=== PATIENT | female | born 1970 | race Caucasian/White ===

== ENCOUNTER 2019-05-05 11:39 | Emergency (ER) | payer OTHER ==
[~2019-05-05] VITALS: Ht 160 cm; Wt 70.3 kg
[2019-05-05 11:55] VITALS: BP_SYST 176
--- NOTE | 2019-05-05 11:55 | NUR ---
Patient to ER bed 5 to gown for evaluation. Side rails up.
--- NOTE | 2019-05-05 11:56 | NUR ---
Patient arrived in the ED c/o headaches and elevated BP readings at home - Taking Lisinopril-HCTZ. Denied any chest pain or shortness of breath. Denied any fevers, chills, nausea or vomiting. Patient is alert and oriented x4, respirations even and unlabored, speaking in full sentences and ambulating with a steady gait. VSS, pain level 7/10. Informed of the approximate wait time. Instructed to notify ED staff for any changes in condition or worsening of symptoms while waiting to be seen by the provider. Patient verbalized understanding.
--- NOTE | 2019-05-05 12:04 | NUR ---
ER Dr. Camacho at bedside examining patient.
--- NOTE | 2019-05-05 12:09 | NUR ---
ECG done at bedside as ordered by Dr. Camacho. Patient tolerated the procedure well. Report given to MD for review.
[2019-05-05] MEDS ORDERED: cloNIDine HCL 0.1 MG TABLET PO ONE (12:15)
--- NOTE | 2019-05-05 12:20 | NUR ---
Patient ambulated to the bathroom with a steady gait. Urine specimen collected and dropped off as ordered by Dr. Camacho. Urine preg and dip done.
--- NOTE | 2019-05-05 12:25 | NUR ---
manager technical training at bedside collecting blood specimen as ordered by Dr. Camacho. Patient tolerated the procedure well.
--- NOTE | 2019-05-05 12:35 | NUR ---
Patient taken to CT via wheelchair, in stable condition.
--- NOTE | 2019-05-05 12:41 | NUR ---
Patient back from CT, in stable condition.
[2019-05-05 12:53] LABS: BASOPHILS # (AUTO) 0.1 K/uL (0.0-0.2); BASOPHILS % (AUTO) 0.8 % (0.0-2.0); EOSINOPHILS # (AUTO) 0.3 K/uL (0.0-0.4); EOSINOPHILS % (AUTO) 2.1 % (0.0-4.0); HEMATOCRIT 43.7 % (36-48); HEMOGLOBIN 14.9 g/dL (12.0-16.0); LYMPHOCYTES # (AUTO) 2.2 K/uL (1.0-5.5); MEAN CORPUSCULAR HEMOGLOBIN 29 pg (27-31); MEAN CORPUSCULAR HGB CONC 34 % (32-36); MEAN CORPUSCULAR VOLUME 85 fL (79.0-98.0); MONOCYTES # (AUTO) 0.8 K/uL (0.0-1.0); MONOCYTES % (AUTO) 6.5 % (1.7-9.3); NEUTROPHILS % (AUTO) 72.6 % (40.0-70.0); PLATELET COUNT (AUTO) 306 K/uL (130-430); RED BLOOD CELL COUNT(AUTO) 5.12 MIL/uL (4.2-6.2); WHITE BLOOD COUNT (AUTO) 12.4 K/uL (4.8-10.8)
[2019-05-05 13:08] LABS: INR 0.9 (0.8-1.2); PROTHROMBIN TIME 9.5 SECS (9.5-12.5)
[2019-05-05 13:17] LABS: CALCIUM 9.1 mg/dL (8.4-11.0); CREATININE 0.57 mg/dL (0.55-1.30); POTASSIUM 3.8 mmol/L (3.5-5.1)
[2019-05-05 13:22] LABS: ALBUMIN 3.7 g/dL (3.4-4.8); TOTAL BILIRUBIN 0.3 mg/dL (0.0-1.0)
--- NOTE | 2019-05-05 14:15 | NUR ---
Patient given written and verbal discharge instructions and verbalizes understanding. ER MD discussed with patient the results and treatment provided. Patient in stable condition. ID arm band removed. Rx of Clonidine given. Patient educated on pain management and to follow up with PMD. Pain Scale 0/10. Opportunity for questions provided and answered. Medication side effect fact sheet provided.
[2019-05-05 14:16] VITALS: BP_SYST 116
== END 2019-05-05 14:16 | disposition home or self-care (01) ==
LOC: SED 11:39
DX: I16.0 Hypertensive urgency (principal)
CPT/HCPCS: 36415; 70450-TC; 80053; 81025; 83880; 84484; 85025; 85610-TC; 85730-TC; 93005; 99284

== ENCOUNTER 2019-05-21 14:54 | Outpatient (CLI) | payer OTHER | END 2019-05-21 19:55 | disposition home or self-care (01) | LOC: SRD 14:54 | PROVIDERS: ATTEND Family Medicine | DX: M47.817 Spondylosis without myelopathy or radiculopathy, lumbosacral region (principal); M47.898 Other spondylosis, sacral and sacrococcygeal region; M47.814 Spondylosis without myelopathy or radiculopathy, thoracic region | CPT/HCPCS: 72072-TC; 72100-TC; 72220-TC ==

== ENCOUNTER 2019-07-16 10:35 | Emergency (ER) | payer OTHER ==
[~2019-07-16] VITALS: Ht 160 cm; Wt 78.9 kg
[2019-07-16 10:51] VITALS: BP_SYST 104
[2019-07-16] MEDS ORDERED: KETOROLAC TROMETHAMINE 60 MG/2 ML VIAL IM ONE (11:15)
[2019-07-16 11:57] VITALS: BP_SYST 116
== END 2019-07-16 11:57 | disposition home or self-care (01) ==
LOC: SED 10:35
DX: M54.5 Low back pain (principal)
CPT/HCPCS: 96372; 99283; J1885

== ENCOUNTER 2019-09-18 11:54 | Emergency (ER) | payer OTHER ==
[~2019-09-18] VITALS: Ht 165.1 cm; Wt 65.8 kg
[2019-09-18 12:00] VITALS: BP_SYST 136
[2019-09-18 12:53] VITALS: BP_SYST 136
== END 2019-09-18 12:55 | disposition home or self-care (01) ==
LOC: SED 11:54
DX: U07.1 COVID-19 (principal); I10 Essential (primary) hypertension
CPT/HCPCS: 99283; U0003

== ENCOUNTER 2019-10-05 09:14 | Emergency (ER) | payer OTHER, SELFPAY ==
[~2019-10-05] VITALS: Ht 162.6 cm; Wt 77.1 kg
--- NOTE | 2019-10-05 09:20 | NUR ---
PT PLACED ON TENT AT THIS TIME
--- NOTE | 2019-10-05 09:22 | NUR ---
Pt presents to ER with sore throat ,pt exposed to covid, pt requesting a second test for covid,as a requirement to come back to workfirst test ws negative, respirations even and unlabored,cap refill <3.
[2019-10-05 09:29] VITALS: BP_SYST 133
--- NOTE | 2019-10-05 09:45 | NUR ---
Dr Mancini assessing patient in the tent
--- NOTE | 2019-10-05 10:22 | NUR ---
Patient given written and verbal discharge instructions and verbalizes understanding. ER MD discussed with patient the results and treatment provided. Patient in stable condition. ID arm band removed. No Rx given. Patient educated on pain management and to follow up with PMD. Pain Scale 0/10. Opportunity for questions provided and answered. Medication side effect fact sheet provided.
[2019-10-05 10:23] VITALS: BP_SYST 133
== END 2019-10-05 10:23 | disposition home or self-care (01) ==
LOC: SED 09:14
DX: J02.8 Acute pharyngitis due to other specified organisms (principal); B97.89 Other viral agents as the cause of diseases classified elsewhere; Z20.828 Contact with and (suspected) exposure to other viral communicable diseases; I10 Essential (primary) hypertension
CPT/HCPCS: 99283; C9803; U0003

== ENCOUNTER 2019-10-27 08:24 | Outpatient (CLI) | payer OTHER ==
[2019-10-27 09:15] LABS: BILIRUBIN,URINE NEGATIVE (NEGATIVE); BLOOD, URINE NEGATIVE (NEGATIVE); CLARITY/URINE CLEAR (CLEAR); COLOR,URINE YELLOW (YELLOW); GLUCOSE,URINE NEGATIVE (NEGATIVE); HEMATOCRIT 40.9 % (36-48); HEMOGLOBIN 13.9 g/dL (12.0-16.0); KETONES,URINE NEGATIVE (NEGATIVE); LEUKOCYTE ESTERASE ,URINE NEGATIVE (NEGATIVE); NITRITE, URINE NEGATIVE (NEGATIVE); PH,URINE 5.5 (5.0-8.0); PROTEIN URINE NEGATIVE (NEGATIVE); UROBILINOGEN,URINE 0.2 (0.2-1.0)
[2019-10-27 10:06] LABS: ALBUMIN 3.4 g/dL (3.4-4.8); CALCIUM 8.8 mg/dL (8.4-11.0); CREATININE 0.61 mg/dL (0.55-1.30); FREE T4 (FREE THYROXINE) 0.8 ng/dL (0.6-1.6); POTASSIUM 3.8 mmol/L (3.5-5.1); THYROID STIMULATING HORMONE 3.64 uIu/mL (0.34-4.82); TOTAL BILIRUBIN 0.5 mg/dL (0.0-1.0)
[2019-10-28 11:10] LABS: FOLLICLE STIMULATION HORMONE 4.5 mIU/mL (.); LUETENIZING HORMONE 6.6 mIU/mL (.)
[2019-10-28 13:56] LABS: HEMOGLOBIN A1C 5.8 % (4.8-5.6)
== END 2019-10-27 19:17 | disposition home or self-care (01) ==
LOC: SLB 08:24
PROVIDERS: ATTEND Specialist
DX: Z00.00 Encounter for general adult medical examination without abnormal findings (principal); E78.5 Hyperlipidemia, unspecified
CPT/HCPCS: 36415; 80053; 80061; 81003; 83001; 83002; 83036; 84146; 84439; 84443-TC; 85018-TC

== ENCOUNTER 2020-02-04 13:14 | Emergency (ER) | payer OTHER ==
[~2020-02-04] VITALS: Ht 160 cm; Wt 77.1 kg
[2020-02-04 13:25] VITALS: BP_SYST 129
[2020-02-04 14:40] VITALS: BP_SYST 129
== END 2020-02-04 14:40 | disposition home or self-care (01) ==
LOC: SED 13:14
DX: J32.9 Chronic sinusitis, unspecified (principal); R51.9 Headache, unspecified; I10 Essential (primary) hypertension; Z90.49 Acquired absence of other specified parts of digestive tract; Z90.710 Acquired absence of both cervix and uterus
CPT/HCPCS: 99282

== ENCOUNTER 2020-02-17 09:59 | Emergency (ER) | payer OTHER, SELFPAY ==
[~2020-02-17] VITALS: Ht 160 cm; Wt 76.2 kg
[2020-02-17 10:00] VITALS: BP_SYST 153
--- NOTE | 2020-02-17 10:00 | NUR ---
BROUGHT BACK TO BED #6 AND TRIAGED. REPORT GIVEN TO CHRISTOPHER
--- NOTE | 2020-02-17 10:10 | NUR ---
Pt walked in to ER with c/o cough and earache x1 week. Denies SOB or fever at this time. V/S stable, Pt currently sitting at bedside, will continue to monitor.
--- NOTE | 2020-02-17 10:14 | NUR ---
DR YUSUF AT BEDSIDE FOR EVALUATION
--- NOTE | 2020-02-17 10:20 | NUR ---
Radiology at bedside for CXR.
--- NOTE | 2020-02-17 10:40 | NUR ---
Nasal swab obtained to r/o covid. Sample sent to lab, pt tolerated well.
--- NOTE | 2020-02-17 11:15 | NUR ---
Patient given written and verbal discharge instructions and verbalizes understanding. ER MD discussed with patient the results and treatment provided. Patient in stable condition. ID arm band removed. Rx of Augmentin and Flonase given. Patient educated on pain management and to follow up with PMD. Pain Scale 0. Opportunity for questions provided and answered. Medication side effect fact sheet provided.
[2020-02-17 11:16] VITALS: BP_SYST 153
== END 2020-02-17 11:15 | disposition home or self-care (01) ==
LOC: SED 09:59
DX: H74.8X3 Other specified disorders of middle ear and mastoid, bilateral (principal); J20.9 Acute bronchitis, unspecified; I10 Essential (primary) hypertension; Z20.828 Contact with and (suspected) exposure to other viral communicable diseases
CPT/HCPCS: 36415; 71045; 99284

== ENCOUNTER → 2020-02-24 | Outpatient (CLI) | payer OTHER ==
[2020-02-24 09:59] LABS: BILIRUBIN,URINE NEGATIVE (NEGATIVE); BLOOD, URINE NEGATIVE (NEGATIVE); CLARITY/URINE CLEAR (CLEAR); COLOR,URINE YELLOW (YELLOW); GLUCOSE,URINE NEGATIVE (NEGATIVE); KETONES,URINE NEGATIVE (NEGATIVE); LEUKOCYTE ESTERASE ,URINE NEGATIVE (NEGATIVE); NITRITE, URINE NEGATIVE (NEGATIVE); PROTEIN URINE NEGATIVE (NEGATIVE); UROBILINOGEN,URINE 0.2 (0.2-1.0)
[2020-02-24 10:11] LABS: BASOPHILS # (AUTO) 0.1 K/uL (0.0-0.2); BASOPHILS % (AUTO) 0.6 % (0.0-2.0); EOSINOPHILS # (AUTO) 0.7 K/uL (0.0-0.4); EOSINOPHILS % (AUTO) 4.2 % (0.0-4.0); HEMATOCRIT 41.9 % (36-48); HEMOGLOBIN 14.3 g/dL (12.0-16.0); LYMPHOCYTES # (AUTO) 2.5 K/uL (1.0-5.5); LYMPHOCYTES % (AUTO) 15.9 % (20.5-51.5); MEAN CORPUSCULAR HEMOGLOBIN 29 pg (27-31); MEAN CORPUSCULAR HGB CONC 34 % (32-36); MEAN CORPUSCULAR VOLUME 85 fL (79.0-98.0); MONOCYTES % (AUTO) 6.4 % (1.7-9.3); NEUTROPHILS # (AUTO) 11.4 K/uL (1.8-7.7); NEUTROPHILS % (AUTO) 72.9 % (40.0-70.0); PLATELET COUNT (AUTO) 315 K/uL (130-430); RED BLOOD CELL COUNT(AUTO) 4.96 MIL/uL (4.2-6.2); RED CELL DISTRIBUTION WIDTH 13.1 % (9.0-15.0); WHITE BLOOD COUNT (AUTO) 15.7 K/uL (4.8-10.8)
[2020-02-24 10:51] LABS: ALBUMIN 3.2 g/dL (3.4-4.8); BILIRUBIN,DIRECT 0.1 mg/dL (0.0-0.3); CALCIUM 8.8 mg/dL (8.4-11.0); CREATININE 0.53 mg/dL (0.55-1.30); THYROID STIMULATING HORMONE 1.69 uIu/mL (0.34-4.82); TOTAL BILIRUBIN 0.4 mg/dL (0.0-1.0); URIC ACID 5.3 mg/dL (2.4-7.0)
[2020-02-24 10:55] LABS: POTASSIUM 3.7 mmol/L (3.5-5.1)
== END | disposition home or self-care (01) ==
LOC: SLB 09:25
PROVIDERS: ATTEND Family Medicine
DX: E78.5 Hyperlipidemia, unspecified (principal); I10 Essential (primary) hypertension; J45.909 Unspecified asthma, uncomplicated
CPT/HCPCS: 36415; 80053; 80061; 80076; 81003; 82306; 82607; 83540-TC; 83550-TC; 84443-TC; 84550-TC; 85025

== ENCOUNTER 2020-03-02 11:29 | Emergency (ER) | payer OTHER, SELFPAY ==
[~2020-03-02] VITALS: Ht 160 cm; Wt 74.8 kg
[2020-03-02 11:40] VITALS: BP_SYST 143
== END 2020-03-02 13:27 | disposition home or self-care (01) ==
LOC: SED 11:29
DX: J06.9 Acute upper respiratory infection, unspecified (principal); I10 Essential (primary) hypertension; Z90.49 Acquired absence of other specified parts of digestive tract; Z20.828 Contact with and (suspected) exposure to other viral communicable diseases
CPT/HCPCS: 99284; 71045; C9803; U0003

== ENCOUNTER 2020-03-17 09:10 | Outpatient (CLI) | payer OTHER | END 2020-03-17 19:59 | disposition home or self-care (01) | LOC: SRD 09:10 | DX: R05 Cough (principal) | CPT/HCPCS: 71046-TC ==

== ENCOUNTER 2020-08-15 15:45 | Outpatient (CLI) | payer OTHER | END 2020-08-15 20:43 | disposition home or self-care (01) | LOC: SRD 15:45 | PROVIDERS: ATTEND Family Medicine | DX: Z12.31 Encounter for screening mammogram for malignant neoplasm of breast (principal) | CPT/HCPCS: 77067 ==

== ENCOUNTER 2020-10-13 06:24 | Day surgery (SDC) | payer OTHER, SELFPAY ==
[~2020-10-13] VITALS: Ht 157.5 cm; Wt 77.1 kg
[2020-10-13] MEDS ORDERED: SIMETHICONE 40 MG/0.6 ML ML ONE (08:09)
[2020-10-13] MEDS ORDERED: MIDAZOLAM HCL 5 MG/5 ML VIAL ONE (08:15)
[2020-10-13] MEDS ORDERED: MEPERIDINE 100 MG INJ. 100 MG/ML VIAL ONE (08:16)
[2020-10-13 11:12] VITALS: BP_SYST 113
== END 2020-10-13 09:35 | disposition home or self-care (01) ==
LOC: SDS 06:24 → SMU 06:28 → SDS 09:35
PROVIDERS: ATTEND Internal Medicine
DX: Z12.11 Encounter for screening for malignant neoplasm of colon (principal); D12.0 Benign neoplasm of cecum; D12.2 Benign neoplasm of ascending colon; D12.4 Benign neoplasm of descending colon; K64.8 Other hemorrhoids; K57.30 Diverticulosis of large intestine without perforation or abscess without bleeding; K64.4 Residual hemorrhoidal skin tags; I12.0 Hypertensive chronic kidney disease with stage 5 chronic kidney disease or end stage renal disease; E11.22 Type 2 diabetes mellitus with diabetic chronic kidney disease; N18.6 End stage renal disease; Z80.0 Family history of malignant neoplasm of digestive organs; Z79.899 Other long term (current) drug therapy
CPT/HCPCS: 36415; 45380; 45385; 87426; 88305; 99152; G0378; J2175; J2250

== ENCOUNTER 2021-06-01 06:54 | Day surgery (SDC) | payer OTHER, SELFPAY ==
[~2021-06-01] VITALS: Ht 157.5 cm; Wt 74.8 kg
[2021-06-01] MEDS ORDERED: MEPERIDINE 100 MG INJ. 100 MG/ML VIAL ONE (08:52)
[2021-06-01] MEDS ORDERED: BENZOCAINE 20% 0.5mL UD SPRAY MM ONE (08:52)
[2021-06-01] MEDS: MIDAZOLAM HCL 5 MG/5 ML VIAL ONE ×3 (09:32→09:37)
[2021-06-01 12:39] VITALS: BP_SYST 122
== END 2021-06-01 10:30 | disposition home or self-care (01) ==
LOC: SDS 06:54 → SMU 06:55 → SDS 10:30
PROVIDERS: ATTEND Internal Medicine
DX: K21.9 Gastro-esophageal reflux disease without esophagitis (principal); K29.70 Gastritis, unspecified, without bleeding; Z20.822 Contact with and (suspected) exposure to COVID-19; Z79.899 Other long term (current) drug therapy
CPT/HCPCS: 36415; 43239; 87426; 88305; 88312; 88313; 99152; G0378; J2175; J2250; U0003

== ENCOUNTER 2021-08-23 23:25 | Emergency (ER) | payer OTHER ==
[~2021-08-23] VITALS: Ht 157.5 cm; Wt 77.1 kg
--- NOTE | 2021-08-23 23:29 | NUR ---
Placed in room 1 . Placed on nurse monitoring, blood pressure machine and pulse oximeter. To gown for exam. Side rails up. Report given to JEREMY CAR[place].
[2021-08-23 23:37] VITALS: BP_SYST 180
[2021-08-24] MEDS ORDERED: ACETAMINOPHEN 500 MG TABLET PO ONE
[2021-08-24] MEDS ORDERED: KETOROLAC TROMETHAMINE 30 MG VIAL IVP ONE
--- NOTE | 2021-08-24 | NUR ---
51 YR OLD FEMALE WITH COMPLAINT OF SHARP CHEST PAIN 8/10 THAT RADIATES DOWN LEFT ARM, PT REPORTS POUNDING HEADACHE 7/10 FOR THRE DAYS. PT REPORTS HX OF HTN. MD AT THE BEDSIDE. EKG COMPLETED IN TRAIGE. IV INSERTED PER PROTOCOL. WILL MONITOR CLOSELY
[2021-08-24 00:05] LABS: BASOPHILS # (AUTO) 0.1 K/uL (0.0-0.2); HEMOGLOBIN 15.9 g/dL (12.0-16.0); MEAN CORPUSCULAR HGB CONC 36 % (32-36); MONOCYTES # (AUTO) 0.7 K/uL (0.0-1.0); RED BLOOD CELL COUNT(AUTO) 5.37 MIL/uL (4.2-6.2)
[2021-08-24 00:09] LABS: BASOPHILS % (AUTO) 1.1 % (0.0-2.0); EOSINOPHILS # (AUTO) 0.2 K/uL (0.0-0.4); HEMATOCRIT 43.9 % (36-48); LYMPHOCYTES # (AUTO) 2.9 K/uL (1.0-5.5); LYMPHOCYTES % (AUTO) 24.8 % (20.5-51.5); MEAN CORPUSCULAR HEMOGLOBIN 30 pg (27-31); MEAN CORPUSCULAR VOLUME 82 fL (79.0-98.0); MONOCYTES % (AUTO) 6.4 % (1.7-9.3); NEUTROPHILS # (AUTO) 7.6 K/uL (1.8-7.7); NEUTROPHILS % (AUTO) 65.7 % (40.0-70.0); PLATELET COUNT (AUTO) 281 K/uL (130-430); RED CELL DISTRIBUTION WIDTH 13.3 % (9.0-15.0); WHITE BLOOD COUNT (AUTO) 11.6 K/uL (4.8-10.8)
[2021-08-24 00:14] LABS: ANION GAP 10 (5-15); CALCIUM 8.3 mg/dL (8.4-11.0); CHLORIDE 95 mmol/L (98-107); CREATININE 0.66 mg/dL (0.55-1.30); GLUCOSE 361 mg/dL (70-99); POTASSIUM 3.4 mmol/L (3.5-5.1); SODIUM SERUM 129 mmol/L (136-145); UREA NITROGEN, BLOOD 14 mg/dL (8-21)
[2021-08-24 00:23] LABS: ALBUMIN 3.3 g/dL (3.4-4.8); GFR AFRICAN AMERICAN 121 mL/min (>90); TOTAL BILIRUBIN 0.6 mg/dL (0.0-1.0)
[2021-08-24] MEDS ORDERED: POTASSIUM CHLORIDE 20 MEQ TAB.PRT.SR PO ONE (00:45)
[2021-08-24] MEDS ORDERED: NACL 0.9% 1,000 ML IV ONE (00:45)
[2021-08-24 01:03] LABS: ALANINE AMINOTRANSFERASE 49 U/L (12-78); ASPARTATE AMINOTRANSFERASE 28 U/L (10-37)
--- NOTE | 2021-08-24 02:15 | NUR ---
IV DC'D IV DC'D, PT TOLERATED WELL. TIP IN TACT, PRESSURE HELD FOR 2 MINUTES. NO BLEEDING
[2021-08-24 02:20] VITALS: BP_SYST 127
--- NOTE | 2021-08-24 02:23 | NUR ---
Patient given written and verbal discharge instructions and verbalizes understanding. ER MD FLORES discussed with patient the results and treatment provided. Patient in stable condition. ID arm band removed. IV catheter removed intact and dressing applied, no active bleeding. Patient educated on pain management and to follow up with PMD. Pain Scale . Opportunity for questions provided and answered. Pt encouarged to follow up with primary care doctor. pt discharged with all belongings. accompanied by daughter
== END 2021-08-24 02:25 | disposition home or self-care (01) ==
LOC: SED 23:25
DX: R07.89 Other chest pain (principal); E87.6 Hypokalemia; E11.9 Type 2 diabetes mellitus without complications; I10 Essential (primary) hypertension
CPT/HCPCS: 36415; 71045; 80053; 83880; 84484; 85025; 85379; 93005; 96361; 96374; 99285; J1885; J7030

== ENCOUNTER 2021-08-26 08:20 | Outpatient (CLI) | payer OTHER ==
[2021-08-26 09:20] LABS: BILIRUBIN,URINE NEGATIVE (NEGATIVE); BLOOD, URINE NEGATIVE (NEGATIVE); CLARITY/URINE CLEAR (CLEAR); COLOR,URINE YELLOW (YELLOW); GLUCOSE,URINE 3+ (NEGATIVE); KETONES,URINE NEGATIVE (NEGATIVE); LEUKOCYTE ESTERASE ,URINE NEGATIVE (NEGATIVE); NITRITE, URINE NEGATIVE (NEGATIVE); PH,URINE 5.5 (5.0-8.0); PROTEIN URINE NEGATIVE (NEGATIVE); UROBILINOGEN,URINE 0.2 (0.2-1.0)
[2021-08-26 09:42] LABS: BACTERIA,URINE RARE /HPF (None Seen); MUCUS,URINE 1+ /LPF (None Seen); RBC,URINE 0-3 /HPF (0-3); WBC,URINE 0-3 /HPF (0-3)
[2021-08-26 10:17] LABS: BASOPHILS # (AUTO) 0.1 K/uL (0.0-0.2); EOSINOPHILS # (AUTO) 0.2 K/uL (0.0-0.4); HEMATOCRIT 42.7 % (36-48); LYMPHOCYTES # (AUTO) 1.7 K/uL (1.0-5.5); MEAN CORPUSCULAR VOLUME 83 fL (79.0-98.0); MONOCYTES # (AUTO) 0.5 K/uL (0.0-1.0); PLATELET COUNT (AUTO) 387 K/uL (130-430); RED BLOOD CELL COUNT(AUTO) 5.17 MIL/uL (4.2-6.2); RED CELL DISTRIBUTION WIDTH 13.5 % (9.0-15.0)
[2021-08-26 10:29] LABS: ALBUMIN 3.5 g/dL (3.4-4.8); CALCIUM 8.4 mg/dL (8.4-11.0); CREATININE 0.63 mg/dL (0.55-1.30); HEMOGLOBIN 14.3 g/dL (12.0-16.0); MEAN CORPUSCULAR HEMOGLOBIN 28 pg (27-31); MEAN CORPUSCULAR HGB CONC 34 % (32-36); POTASSIUM 3.8 mmol/L (3.5-5.1); TOTAL BILIRUBIN 0.3 mg/dL (0.0-1.0)
[2021-08-26 10:30] LABS: WHITE BLOOD COUNT (AUTO) 8.3 K/uL (4.8-10.8)
[2021-08-26 10:31] LABS: BASOPHILS % (AUTO) 0.7 % (0.0-2.0); EOSINOPHILS % (AUTO) 2.4 % (0.0-4.0); LYMPHOCYTES % (AUTO) 20.4 % (20.5-51.5); MONOCYTES % (AUTO) 5.9 % (1.7-9.3); NEUTROPHILS % (AUTO) 70.6 % (40.0-70.0)
[2021-08-27 15:00] LABS: HEMOGLOBIN A1C 10.1 % (4.8-5.6)
== END 2021-08-26 19:09 | disposition home or self-care (01) ==
LOC: SLB 08:20
PROVIDERS: ATTEND Pathology Anatomic Pathology & Clinical Pathology
DX: E87.6 Hypokalemia (principal); R73.9 Hyperglycemia, unspecified; E83.51 Hypocalcemia; D64.9 Anemia, unspecified
CPT/HCPCS: 36415; 80053; 80061; 81000; 82306; 82607; 83036; 83540; 84550; 85025

== ENCOUNTER 2021-08-31 15:30 | Outpatient (CLI) | payer OTHER | END 2021-09-04 08:14 | disposition home or self-care (01) | LOC: SMA 15:30 | PROVIDERS: ATTEND Family Medicine | DX: Z12.31 Encounter for screening mammogram for malignant neoplasm of breast (principal); M47.812 Spondylosis without myelopathy or radiculopathy, cervical region; M50.122 Cervical disc disorder at C5-C6 level with radiculopathy; M48.02 Spinal stenosis, cervical region; N64.89 Other specified disorders of breast; M77.8 Other enthesopathies, not elsewhere classified; Z98.82 Breast implant status | CPT/HCPCS: 72050-TC; 76641; 77067 ==

== ENCOUNTER 2021-12-10 09:27 | Outpatient (CLI) | payer OTHER ==
[2021-12-10 10:08] LABS: BASOPHILS # (AUTO) 0.1 K/uL (0.0-0.2); BASOPHILS % (AUTO) 0.8 % (0.0-2.0); EOSINOPHILS # (AUTO) 0.2 K/uL (0.0-0.4); EOSINOPHILS % (AUTO) 1.8 % (0.0-4.0); HEMATOCRIT 41.2 % (36-48); LYMPHOCYTES # (AUTO) 2.1 K/uL (1.0-5.5); LYMPHOCYTES % (AUTO) 18.5 % (20.5-51.5); MEAN CORPUSCULAR VOLUME 81 fL (79.0-98.0); MONOCYTES # (AUTO) 0.7 K/uL (0.0-1.0); MONOCYTES % (AUTO) 5.7 % (1.7-9.3); NEUTROPHILS # (AUTO) 8.4 K/uL (1.8-7.7); NEUTROPHILS % (AUTO) 73.2 % (40.0-70.0); PLATELET COUNT (AUTO) 285 K/uL (130-430); RED BLOOD CELL COUNT(AUTO) 5.06 MIL/uL (4.2-6.2); RED CELL DISTRIBUTION WIDTH 13.2 % (9.0-15.0); WHITE BLOOD COUNT (AUTO) 11.4 K/uL (4.8-10.8)
[2021-12-10 11:27] LABS: CALCIUM 9.3 mg/dL (8.4-11.0); CREATININE 0.64 mg/dL (0.55-1.30); POTASSIUM 3.6 mmol/L (3.5-5.1)
[2021-12-10 13:30] LABS: BILIRUBIN,URINE NEGATIVE (NEGATIVE); BLOOD, URINE NEGATIVE (NEGATIVE); CLARITY/URINE CLOUDY (CLEAR); COLOR,URINE YELLOW (YELLOW); GLUCOSE,URINE NEGATIVE (NEGATIVE); KETONES,URINE NEGATIVE (NEGATIVE); LEUKOCYTE ESTERASE ,URINE NEGATIVE (NEGATIVE); NITRITE, URINE NEGATIVE (NEGATIVE); PROTEIN URINE NEGATIVE (NEGATIVE); UROBILINOGEN,URINE 0.2 (0.2-1.0)
[2021-12-10 13:49] LABS: BACTERIA,URINE None Seen /HPF (None Seen); RBC,URINE NONE SEEN /HPF (0-3); URINE AMORPHOUS URATE 4+ /HPF (None Seen); WBC,URINE NONE SEEN /HPF (0-3)
[2021-12-11 08:06] LABS: FOLLICLE STIMULATION HORMONE 27.2 mIU/mL (.); LUETENIZING HORMONE 13.5 mIU/mL (.)
== END 2021-12-10 20:12 | disposition home or self-care (01) ==
LOC: SLB 09:27
PROVIDERS: ATTEND Family Medicine
DX: E11.9 Type 2 diabetes mellitus without complications (principal); N95.9 Unspecified menopausal and perimenopausal disorder; E78.5 Hyperlipidemia, unspecified; Z88.6 Allergy status to analgesic agent
CPT/HCPCS: 36415; 80048; 80061; 81000; 82150; 82785; 83001; 83002; 83036; 83690; 83970; 85025

== ENCOUNTER 2022-01-05 11:41 | Outpatient (CLI) | payer OTHER | END 2022-01-05 19:00 | disposition home or self-care (01) | LOC: SMI 11:41 | PROVIDERS: ATTEND Psychiatry & Neurology Neurology with Special Qualifications in Child Neurology | DX: M47.22 Other spondylosis with radiculopathy, cervical region (principal); M50.122 Cervical disc disorder at C5-C6 level with radiculopathy; M50.123 Cervical disc disorder at C6-C7 level with radiculopathy; M47.817 Spondylosis without myelopathy or radiculopathy, lumbosacral region; M48.061 Spinal stenosis, lumbar region without neurogenic claudication | CPT/HCPCS: 72141; 72148 ==

== ENCOUNTER 2022-04-15 08:43 | Outpatient (CLI) | payer OTHER ==
[2022-04-15 09:29] LABS: BILIRUBIN,URINE NEGATIVE (NEGATIVE); BLOOD, URINE NEGATIVE (NEGATIVE); CLARITY/URINE CLEAR (CLEAR); COLOR,URINE YELLOW (YELLOW); GLUCOSE,URINE NEGATIVE (NEGATIVE); KETONES,URINE NEGATIVE (NEGATIVE); LEUKOCYTE ESTERASE ,URINE NEGATIVE (NEGATIVE); NITRITE, URINE NEGATIVE (NEGATIVE); PROTEIN URINE NEGATIVE (NEGATIVE); UROBILINOGEN,URINE 0.2 (0.2-1.0)
[2022-04-15 09:32] LABS: BASOPHILS % (AUTO) 0.2 % (0.0-2.0); EOSINOPHILS # (AUTO) 0.3 K/uL (0.0-0.4); EOSINOPHILS % (AUTO) 2.7 % (0.0-4.0); HEMATOCRIT 43.4 % (36-48); HEMOGLOBIN 14.9 g/dL (12.0-16.0); LYMPHOCYTES # (AUTO) 2.3 K/uL (1.0-5.5); LYMPHOCYTES % (AUTO) 19.9 % (20.5-51.5); MEAN CORPUSCULAR HEMOGLOBIN 29 pg (27-31); MEAN CORPUSCULAR HGB CONC 34 % (32-36); MEAN CORPUSCULAR VOLUME 84 fL (79.0-98.0); MONOCYTES # (AUTO) 0.7 K/uL (0.0-1.0); MONOCYTES % (AUTO) 5.7 % (1.7-9.3); NEUTROPHILS # (AUTO) 8.4 K/uL (1.8-7.7); NEUTROPHILS % (AUTO) 71.5 % (40.0-70.0); PLATELET COUNT (AUTO) 284 K/uL (130-430); RED BLOOD CELL COUNT(AUTO) 5.18 MIL/uL (4.2-6.2); RED CELL DISTRIBUTION WIDTH 13.1 % (9.0-15.0); WHITE BLOOD COUNT (AUTO) 11.7 K/uL (4.8-10.8)
[2022-04-15 09:46] LABS: ALBUMIN 3.9 g/dL (3.4-4.8); BILIRUBIN,DIRECT 0.1 mg/dL (0.0-0.3); CREATININE 0.57 mg/dL (0.55-1.30); THYROID STIMULATING HORMONE 2.22 uIu/mL (0.34-4.82); TOTAL BILIRUBIN 0.6 mg/dL (0.0-1.0)
[2022-04-16 16:06] LABS: FOLLICLE STIMULATION HORMONE 7.7 mIU/mL (.); LUETENIZING HORMONE 6.6 mIU/mL (.); T4 (THYROXINE) 8.7 ug/dL (4.5-12.0)
== END 2022-04-15 19:01 | disposition home or self-care (01) ==
LOC: SLB 08:43
PROVIDERS: ATTEND Family Medicine
DX: Z13.21 Encounter for screening for nutritional disorder (principal); Z13.29 Encounter for screening for other suspected endocrine disorder; Z13.0 Encounter for screening for diseases of the blood and blood-forming organs and certain disorders involving the immune mechanism; I10 Essential (primary) hypertension; E11.9 Type 2 diabetes mellitus without complications; E78.5 Hyperlipidemia, unspecified; N95.9 Unspecified menopausal and perimenopausal disorder
CPT/HCPCS: 36415; 80053; 80061; 81003; 82248; 82607; 83001; 83002; 83036; 83540; 84436; 84443; 84480; 85025

== ENCOUNTER 2022-04-27 18:10 | Emergency (ER) | payer OTHER ==
[~2022-04-27] VITALS: Ht 160 cm; Wt 72.6 kg
[2022-04-27 18:28] VITALS: BP_SYST 143
[2022-04-27 19:57] LABS: BASOPHILS % (AUTO) 0.3 % (0.0-2.0); EOSINOPHILS # (AUTO) 0.1 K/uL (0.0-0.4); EOSINOPHILS % (AUTO) 1.2 % (0.0-4.0); HEMATOCRIT 40.5 % (36-48); HEMOGLOBIN 14.4 g/dL (12.0-16.0); LYMPHOCYTES # (AUTO) 1.1 K/uL (1.0-5.5); LYMPHOCYTES % (AUTO) 10.2 % (20.5-51.5); MEAN CORPUSCULAR HEMOGLOBIN 30 pg (27-31); MEAN CORPUSCULAR HGB CONC 36 % (32-36); MEAN CORPUSCULAR VOLUME 83 fL (79.0-98.0); MONOCYTES % (AUTO) 9.3 % (1.7-9.3); NEUTROPHILS # (AUTO) 8.4 K/uL (1.8-7.7); PLATELET COUNT (AUTO) 289 K/uL (130-430); RED CELL DISTRIBUTION WIDTH 13.3 % (9.0-15.0); WHITE BLOOD COUNT (AUTO) 10.7 K/uL (4.8-10.8)
[2022-04-27 20:03] LABS: ANION GAP 11 (5-15); CALCIUM 9.1 mg/dL (8.4-11.0); CHLORIDE 100 mmol/L (98-107); CREATININE 0.57 mg/dL (0.55-1.30); GLUCOSE 157 mg/dL (70-99); UREA NITROGEN, BLOOD 9 mg/dL (8-21)
[2022-04-27 20:07] LABS: GFR AFRICAN AMERICAN 143 mL/min (>90)
[2022-04-27 20:10] LABS: ALANINE AMINOTRANSFERASE 63 U/L (12-78); ALBUMIN 3.9 g/dL (3.4-4.8); ASPARTATE AMINOTRANSFERASE 39 U/L (10-37); TOTAL BILIRUBIN 0.5 mg/dL (0.0-1.0)
[2022-04-27] MEDS ORDERED: ALBUTEROL SULFATE 0.083% 2.5 MG/3 ML VIAL.NEB INH ONE (20:30)
[2022-04-27] MEDS ORDERED: IBUPROFEN 800 MG TABLET PO ONE (20:30)
[2022-04-27] MEDS ORDERED: IPRATROPIUM BROM 0.5 MG/2.5 ML VIAL.NEB (ATROVENT) INH ONE (20:30)
[2022-04-27] MEDS ORDERED: PHEDM120 PO (21:54)
[2022-04-27] MEDS ORDERED: IBUP-1969 PO (21:54)
[2022-04-27] MEDS ORDERED: ALBMDI INH (21:54)
--- NOTE | 2022-04-27 21:58 | NUR ---
Patient given written and verbal discharge instructions and verbalizes understanding. ER MD Dr. Camacho discussed with patient the results and treatment provided. Patient in stable condition. ID arm band removed. Rx given. Patient educated on pain management and to follow up with PMD. Pain Scale 0. Opportunity for questions provided and answered. Medication side effect fact sheet provided.
[2022-04-27 22:07] VITALS: BP_SYST 115
== END 2022-04-27 22:07 | disposition home or self-care (01) ==
LOC: SED 18:10
DX: J40 Bronchitis, not specified as acute or chronic (principal); R05.9 Cough, unspecified; R50.9 Fever, unspecified; M79.10 Myalgia, unspecified site; I10 Essential (primary) hypertension; Z79.899 Other long term (current) drug therapy; Z20.822 Contact with and (suspected) exposure to COVID-19
CPT/HCPCS: 80053; 84703; 83880; 85025; 84484; 36415; 71045; 94640; 99284; 83605; 87804 ×2; 87426; J7613

== ENCOUNTER 2022-04-29 08:17 | Emergency (ER) | payer OTHER ==
[~2022-04-29] VITALS: Ht 160 cm; Wt 74.8 kg
[~2022-04-29 08:17] MED LIST: ALBMDI INH; IBUP-1969 PO; PHEDM120 PO
--- NOTE | 2022-04-29 08:19 | NUR ---
BROUGHT BACK TO BED #7 SAURABH MUNIZ. REPORT GIVEN TO HETAL
[2022-04-29 08:20] VITALS: BP_SYST 148
--- NOTE | 2022-04-29 08:31 | NUR ---
PT BIB SELF AWAKE AND ALERT AOX4. PT C/O SOB AND BODY ACHES. PT STATED SHE WAS HERE IN THE ER SATURDAY AND WAS DX W/ BRONCITIS. PT STATED SHE TOOK ALL PRECRIBED MED SHE RECEIVED FROM HER PREVIOUS VISIT BUT NOTHING HELP. PT O2 SAT IS 95% ON RA. PT HAS HX OD DM2 AND HTN.
--- NOTE | 2022-04-29 08:34 | NUR ---
MD DR MCCAULEY AT BEDSIDE
[2022-04-29] MEDS ORDERED: ALBUTEROL SULFATE 0.083% 2.5 MG/3 ML VIAL.NEB INH ONE (09:15)
[2022-04-29] MEDS ORDERED: predniSONE 20 MG TABLET PO ONE (09:15)
[2022-04-29] MEDS ORDERED: IPRATROPIUM BROM 0.5 MG/2.5 ML VIAL.NEB (ATROVENT) INH ONE (09:15)
[2022-04-29] MEDS ORDERED: KETOROLAC TROMETHAMINE 60 MG/2 ML VIAL IM ONE (09:30)
[2022-04-29] MEDS ORDERED: HYDR-3917 PO (10:06)
[2022-04-29] MEDS ORDERED: PRED20TA PO (10:06)
[2022-04-29 10:15] VITALS: BP_SYST 148
--- NOTE | 2022-04-29 10:16 | NUR ---
Patient given written and verbal discharge instructions and verbalizes understanding. ER MD DR ZABALA discussed with patient the results and treatment provided. Patient in stable condition. ID arm band removed. Rx of NORCO AND PREDNISONE given. Patient educated on pain management and to follow up with PMD. Pain Scale 5/10. Opportunity for questions provided and answered. Medication side effect fact sheet provided.
== END 2022-04-29 10:16 | disposition home or self-care (01) ==
LOC: SED 08:17
DX: R06.02 Shortness of breath (principal); R05.9 Cough, unspecified; R07.9 Chest pain, unspecified; E11.9 Type 2 diabetes mellitus without complications; I10 Essential (primary) hypertension; Z79.899 Other long term (current) drug therapy
CPT/HCPCS: 94640; 94760; 99283; 96372; J7512; J1885; J7613; 99285

== ENCOUNTER 2022-10-13 08:52 | Outpatient (CLI) | payer OTHER ==
[~2022-10-13 08:52] MED LIST changes: +HYDR-3917 PO; +PRED20TA PO
[2022-10-13 09:49] LABS: BASOPHILS # (AUTO) 0.1 K/uL (0.0-0.2); BASOPHILS % (AUTO) 0.4 % (0.0-2.0); EOSINOPHILS # (AUTO) 0.3 K/uL (0.0-0.4); EOSINOPHILS % (AUTO) 2.4 % (0.0-4.0); HEMATOCRIT 44.9 % (36-48); HEMOGLOBIN 15.2 g/dL (12.0-16.0); LYMPHOCYTES # (AUTO) 2.6 K/uL (1.0-5.5); MEAN CORPUSCULAR HEMOGLOBIN 28 pg (27-31); MEAN CORPUSCULAR HGB CONC 34 % (32-36); MEAN CORPUSCULAR VOLUME 83 fL (79.0-98.0); MONOCYTES # (AUTO) 0.8 K/uL (0.0-1.0); MONOCYTES % (AUTO) 6.4 % (1.7-9.3); NEUTROPHILS # (AUTO) 8.2 K/uL (1.8-7.7); NEUTROPHILS % (AUTO) 68.8 % (40.0-70.0); PLATELET COUNT (AUTO) 327 K/uL (130-430); RED BLOOD CELL COUNT(AUTO) 5.39 MIL/uL (4.2-6.2); WHITE BLOOD COUNT (AUTO) 11.9 K/uL (4.8-10.8)
[2022-10-13 09:50] LABS: CALCIUM 9.5 mg/dL (8.4-11.0); CREATININE 0.62 mg/dL (0.55-1.30)
[2022-10-15 08:06] LABS: FOLLICLE STIMULATION HORMONE 39.7 mIU/mL (.); LUETENIZING HORMONE 22.4 mIU/mL (.); PROLACTIN 8.2 ng/mL (4.8-23.3)
== END 2022-10-13 18:33 | disposition home or self-care (01) ==
LOC: SLB 08:52
PROVIDERS: ATTEND Family Medicine
DX: E11.65 Type 2 diabetes mellitus with hyperglycemia (principal); E78.5 Hyperlipidemia, unspecified; N95.9 Unspecified menopausal and perimenopausal disorder
CPT/HCPCS: 36415; 80048; 80061; 82150; 82785; 83001; 83002; 83037; 83690; 83970; 84146; 85025

== ENCOUNTER 2022-12-09 15:33 | Inpatient (IN) | payer OTHER ==
[~2022-12-09] VITALS: Ht 157.5 cm; Wt 74.8 kg
[2022-12-09 15:35] VITALS: BP_SYST 135; PULSE 106; RESP 19; TEMP 99.5; O2SAT 96
[2022-12-09] MEDS ORDERED: guaiFENesin/DEXTROMETHORPHAN 10 ML UDC PO ONE (17:15)
[2022-12-09] MEDS ORDERED: NACL 0.9% 1,000 ML IV ONE (17:15)
[2022-12-09] MEDS ORDERED: KETOROLAC TROMETHAMINE 30 MG VIAL IVP ONE (17:15)
[2022-12-09 17:53] LABS: BASOPHILS % (AUTO) 0.2 % (0.0-2.0); EOSINOPHILS % (AUTO) 0.4 % (0.0-4.0); HEMATOCRIT 44.7 % (36-48); LYMPHOCYTES # (AUTO) 1.5 K/uL (1.0-5.5); LYMPHOCYTES % (AUTO) 14.2 % (20.5-51.5); MEAN CORPUSCULAR HEMOGLOBIN 28 pg (27-31); MEAN CORPUSCULAR HGB CONC 34 % (32-36); MEAN CORPUSCULAR VOLUME 83 fL (79.0-98.0); MONOCYTES # (AUTO) 1.3 K/uL (0.0-1.0); MONOCYTES % (AUTO) 12.5 % (1.7-9.3); NEUTROPHILS # (AUTO) 7.5 K/uL (1.8-7.7); NEUTROPHILS % (AUTO) 72.7 % (40.0-70.0); PLATELET COUNT (AUTO) 282 K/uL (130-430); RED BLOOD CELL COUNT(AUTO) 5.36 MIL/uL (4.2-6.2); RED CELL DISTRIBUTION WIDTH 12.9 % (9.0-15.0); WHITE BLOOD COUNT (AUTO) 10.3 K/uL (4.8-10.8)
[2022-12-09 17:56] LABS: ABG O2 SAT% ESTIMATE 94.4 % (94.0-100.0); BLOOD GAS BASE EXCESS 1.4 mmol/L (-3.0-3.0); BLOOD GAS HCO3 24.9 mmol/L (21.0-27.0); BLOOD GAS PCO2 36.3 mmHg (35.0-45.0); BLOOD GAS PH 7.455 (7.350-7.450); BLOOD GAS PO2 67.3 mmHg (75.0-100.0)
[2022-12-09 18:03] LABS: ALLEN'S TEST POSITIVE (P)
[2022-12-09 18:08] LABS: PROTHROMBIN TIME 10.8 SECS (9.5-12.5)
[2022-12-09 18:12] LABS: ALANINE AMINOTRANSFERASE 124 U/L (12-78); ALBUMIN 3.7 g/dL (3.4-4.8); ANION GAP 11 (5-15); ASPARTATE AMINOTRANSFERASE 65 U/L (10-37); CALCIUM 9.2 mg/dL (8.4-11.0); CARBON DIOXIDE 28 mmol/L (23-29); CHLORIDE 98 mmol/L (98-107); CREATININE 0.63 mg/dL (0.55-1.30); GFR AFRICAN AMERICAN 128 mL/min (>90); GFR NON AFRICAN-AMERICAN 105 mL/min (>90); GLUCOSE 155 mg/dL (74-106); POTASSIUM 3.2 mmol/L (3.5-5.1); SODIUM SERUM 137 mmol/L (136-145); TOTAL BILIRUBIN 0.6 mg/dL (0.0-1.0); TOTAL PROTEIN, SERUM 7.6 g/dL (6.4-8.3); UREA NITROGEN, BLOOD 11 mg/dL (8-21)
[2022-12-09] MEDS ORDERED: DEXAMETHASONE SOD PHOSPHATE 10 MG/ML VIAL IVP ONE (18:15)
[2022-12-09] MEDS ORDERED: POTASSIUM CHLORIDE 20 MEQ TAB.PRT.SR PO ONE (18:45)
[2022-12-09] MEDS ORDERED: BENZONATATE 100 MG CAPSULE (TESSALON) PO ONE (18:45)
[2022-12-09] MEDS ORDERED: MAGNESIUM OXIDE 400 MG TABLET PO ONE (19:30)
[2022-12-09 19:40] LABS: INFLUENZA TYPE A negative (NEGATIVE); INFLUENZA TYPE B NEGATIVE (NEGATIVE)
[2022-12-09] MEDS ORDERED: BENZONATATE 100 MG CAPSULE (TESSALON) ONE (19:55)
[2022-12-09] MEDS ORDERED: AZITHROMYCIN 500 MG in NS 250 ML IV ONE (20:00)
[2022-12-09] MEDS ORDERED: MAGNESIUM OXIDE 400 MG TABLET ONE (21:14)
[2022-12-09] MEDS ORDERED: AZITHROMYCIN 500 MG/VIAL (ZITHROMAX) IV ONE (21:33)
[2022-12-09 21:48] LABS: BILIRUBIN,URINE NEGATIVE (NEGATIVE); CLARITY/URINE Clear (CLEAR); COLOR,URINE YELLOW (YELLOW); GLUCOSE,URINE NEGATIVE (NEGATIVE); KETONES,URINE NEGATIVE (NEGATIVE); NITRITE, URINE NEGATIVE (NEGATIVE); PROTEIN URINE NEGATIVE (NEGATIVE); UROBILINOGEN,URINE 0.2 (0.2-1.0)
[2022-12-09 21:49] LABS: BLOOD, URINE TRACE (NEGATIVE); LEUKOCYTE ESTERASE ,URINE NEGATIVE (NEGATIVE)
[2022-12-09 21:55] LABS: BACTERIA,URINE RARE /HPF (None Seen); MUCUS,URINE 1+ /LPF (None Seen); RBC,URINE 0-3 /HPF (0-3); WBC,URINE 0-3 /HPF (0-3)
[2022-12-09] MEDS: DEXAMETHASONE SOD PHOSPHATE 4 MG/ML VIAL PO SCH (21:59)
[2022-12-09] MEDS ORDERED: DIPHENHYDRAMINE INJ 50 MG/ML VIAL IVP ONE (23:00)
[2022-12-10 08:57] VITALS: BP_SYST 144; PULSE 80; RESP 19; TEMP 97.5; O2SAT 97
[2022-12-10] MEDS ORDERED: ENOXAPARIN SODIUM 80 MG/0.8 ML SYRINGE SUBCUT SCH (09:00)
[2022-12-10] MEDS: DEXAMETHASONE SOD PHOSPHATE 4 MG/ML VIAL PO SCH ×2 (09:00→21:00)
[2022-12-10 09:02] VITALS: BP_SYST 144; PULSE 79; RESP 19; TEMP 97.5
[2022-12-10] MEDS: AZITHROMYCIN 500 MG in NS 250 ML IV SCH (12:22)
[2022-12-10 13:13] LABS: CALCIUM 8.6 mg/dL (8.4-11.0); CREATININE 0.63 mg/dL (0.55-1.30); POTASSIUM 3.5 mmol/L (3.5-5.1)
[2022-12-10 16:42] VITALS: BP_SYST 135; PULSE 79; RESP 19; TEMP 97.5; O2SAT 96
[2022-12-10] MEDS: ACETAMINOPHEN 500 MG TABLET PO PRN ×2 (16:45→23:00)
[2022-12-10 19:00] VITALS: BP_SYST 129; PULSE 78; RESP 20; TEMP 98.2; O2SAT 98
[2022-12-10] MEDS ORDERED: ENOXAPARIN SODIUM 40 MG/0.4 ML SYRINGE SUBCUT SCH (21:00)
[2022-12-10] MEDS ORDERED: MAGNESIUM OXIDE 400 MG TABLET ONE ×2 (22:03→22:58)
[2022-12-11] MEDS ORDERED: D5W 1,000 ML IV PRN (00:15)
[2022-12-11] MEDS ORDERED: DEXTROSE 50% JECT 50 ML DISP.SYRIN IVP PRN (00:15)
[2022-12-11] MEDS ORDERED: GLUCOSE (DEXTROSE) ORAL GEL -Adults PO PRN (00:15)
[2022-12-11] MEDS: INSULIN REGULAR, HUMAN 100 UNITS/ML, 3 ML VIAL (humuLIN R) SUBCUT PRN ×3 (00:31→17:18)
[2022-12-11] MEDS ORDERED: LORazepam 2 MG/ML VIAL IVP ONE ×2 (01:30→02:00)
[2022-12-11 04:22] LABS: BASOPHILS % (AUTO) 0.1 % (0.0-2.0); HEMATOCRIT 38.7 % (36-48); HEMOGLOBIN 12.9 g/dL (12.0-16.0); LYMPHOCYTES # (AUTO) 1.3 K/uL (1.0-5.5); LYMPHOCYTES % (AUTO) 10.3 % (20.5-51.5); MEAN CORPUSCULAR HEMOGLOBIN 28 pg (27-31); MEAN CORPUSCULAR HGB CONC 33 % (32-36); MEAN CORPUSCULAR VOLUME 83 fL (79.0-98.0); MONOCYTES # (AUTO) 0.9 K/uL (0.0-1.0); MONOCYTES % (AUTO) 7.3 % (1.7-9.3); NEUTROPHILS % (AUTO) 82.3 % (40.0-70.0); PLATELET COUNT (AUTO) 282 K/uL (130-430); RED BLOOD CELL COUNT(AUTO) 4.65 MIL/uL (4.2-6.2); RED CELL DISTRIBUTION WIDTH 13.1 % (9.0-15.0); WHITE BLOOD COUNT (AUTO) 12.2 K/uL (4.8-10.8)
[2022-12-11 04:46] LABS: CALCIUM 8.6 mg/dL (8.4-11.0); CREATININE 0.56 mg/dL (0.55-1.30); POTASSIUM 3.9 mmol/L (3.5-5.1)
[2022-12-11 09:00] VITALS: BP_SYST 138; PULSE 75; RESP 18; TEMP 98.3; O2SAT 97
[2022-12-11] MEDS: DEXAMETHASONE SOD PHOSPHATE 4 MG/ML VIAL PO SCH (09:11)
[2022-12-11 11:30] VITALS: BP_SYST 140; PULSE 71; RESP 18; TEMP 97.8; O2SAT 97
[2022-12-11] MEDS: AZITHROMYCIN 500 MG in NS 250 ML IV SCH (12:13)
[2022-12-11] MEDS ORDERED: PRED5TAB PO (12:39)
[2022-12-11] MEDS ORDERED: CEPH250C PO (12:39)
[2022-12-11 15:23] VITALS: BP_SYST 140; PULSE 71; RESP 18; TEMP 97.8; O2SAT 97
[2022-12-11 18:04] VITALS: O2SAT 98
[2022-12-11 18:05] VITALS: BP_SYST 140; PULSE 71; RESP 18; TEMP 97; O2SAT 98
== END 2022-12-11 18:10 | disposition home or self-care (01) | DRG 177 ==
LOC: SED 15:33 → STU 19:54 → SMU 12-11 04:16
PROVIDERS: ADMIT Specialist; ATTEND Specialist
PROC: XW033E5 Introduction of Remdesivir Anti-infective into Peripheral Vein, Percutaneous Approach, New Technology Group 5 (ICD-10-PCS; principal; 2022-12-10)
DX: U07.1 COVID-19 (principal); J12.89 Other viral pneumonia; E87.20 Acidosis, unspecified; E87.6 Hypokalemia; E78.1 Pure hyperglyceridemia; E11.9 Type 2 diabetes mellitus without complications; I10 Essential (primary) hypertension; R09.02 Hypoxemia; R53.1 Weakness; E66.9 Obesity, unspecified; Z68.30 Body mass index [BMI] 30.0-30.9, adult
CPT/HCPCS: 36415; 71045; 80048; 80053; 81000; 81003; 82803; 82962; 83605; 83880; 84484; 85025; 85379; 85610-TC; 85730-TC; 87040; 87086; 93005; 96361; 96374; 96375; 99291; 99292; G0378; J0456; J0696; J1100; J1200; J1650; J1885; J2060; J7050; J7060

== ENCOUNTER → 2023-01-20 | Outpatient (CLI) | payer OTHER ==
[~2023-01-20] MED LIST changes: +CEPH250C PO; -IBUP-1969 PO; +PRED5TAB PO
[2023-01-20 08:29] LABS: BILIRUBIN,URINE NEGATIVE (NEGATIVE); BLOOD, URINE NEGATIVE (NEGATIVE); CLARITY/URINE CLEAR (CLEAR); COLOR,URINE YELLOW (YELLOW); GLUCOSE,URINE NEGATIVE (NEGATIVE); KETONES,URINE NEGATIVE (NEGATIVE); LEUKOCYTE ESTERASE ,URINE NEGATIVE (NEGATIVE); NITRITE, URINE NEGATIVE (NEGATIVE); PROTEIN URINE NEGATIVE (NEGATIVE); UROBILINOGEN,URINE 0.2 (0.2-1.0)
[2023-01-20 08:40] LABS: BASOPHILS % (AUTO) 0.5 % (0.0-2.0); EOSINOPHILS # (AUTO) 0.2 K/uL (0.0-0.4); HEMATOCRIT 44.1 % (36-48); HEMOGLOBIN 14.7 g/dL (12.0-16.0); LYMPHOCYTES # (AUTO) 2.5 K/uL (1.0-5.5); LYMPHOCYTES % (AUTO) 25.2 % (20.5-51.5); MEAN CORPUSCULAR HEMOGLOBIN 28 pg (27-31); MEAN CORPUSCULAR HGB CONC 33 % (32-36); MEAN CORPUSCULAR VOLUME 83 fL (79.0-98.0); MONOCYTES # (AUTO) 0.7 K/uL (0.0-1.0); MONOCYTES % (AUTO) 7.2 % (1.7-9.3); NEUTROPHILS # (AUTO) 6.4 K/uL (1.8-7.7); NEUTROPHILS % (AUTO) 65.1 % (40.0-70.0); PLATELET COUNT (AUTO) 344 K/uL (130-430); RED BLOOD CELL COUNT(AUTO) 5.34 MIL/uL (4.2-6.2); RED CELL DISTRIBUTION WIDTH 13.4 % (9.0-15.0); WHITE BLOOD COUNT (AUTO) 9.8 K/uL (4.8-10.8)
[2023-01-20 09:02] LABS: ALBUMIN 3.6 g/dL (3.4-4.8); BILIRUBIN,DIRECT 0.1 mg/dL (0.0-0.3); CALCIUM 9.3 mg/dL (8.4-11.0); CREATININE 0.55 mg/dL (0.55-1.30); POTASSIUM 3.5 mmol/L (3.5-5.1); THYROID STIMULATING HORMONE 3.46 uIu/mL (0.34-4.82); TOTAL BILIRUBIN 0.3 mg/dL (0.0-1.0); URIC ACID 4.3 mg/dL (2.4-7.0)
== END | disposition home or self-care (01) ==
LOC: SLB 07:51
PROVIDERS: ATTEND Family Medicine
DX: Z13.0 Encounter for screening for diseases of the blood and blood-forming organs and certain disorders involving the immune mechanism (principal); Z13.1 Encounter for screening for diabetes mellitus; Z13.29 Encounter for screening for other suspected endocrine disorder; E11.9 Type 2 diabetes mellitus without complications; E78.5 Hyperlipidemia, unspecified
CPT/HCPCS: 36415; 80053; 80061; 81001; 81003; 82248; 82306; 83540; 83550; 84439; 84443; 84480; 84550; 85025; 86592

== ENCOUNTER 2023-06-11 22:36 | Emergency (ER) | payer SELFPAY ==
[~2023-06-11] VITALS: Ht 157.5 cm; Wt 77.1 kg
[2023-06-11 22:42] VITALS: BP_SYST 170; PULSE 92; RESP 20; TEMP 98.8; O2SAT 98
[2023-06-12 00:13] LABS: BASOPHILS # (AUTO) 0.1 K/uL (0.0-0.2); BASOPHILS % (AUTO) 0.7 % (0.0-2.0); EOSINOPHILS # (AUTO) 0.3 K/uL (0.0-0.4); EOSINOPHILS % (AUTO) 2.5 % (0.0-4.0); HEMATOCRIT 39.6 % (36-48); LYMPHOCYTES # (AUTO) 2.7 K/uL (1.0-5.5); LYMPHOCYTES % (AUTO) 27.2 % (20.5-51.5); MEAN CORPUSCULAR HEMOGLOBIN 29 pg (27-31); MEAN CORPUSCULAR HGB CONC 35 % (32-36); MEAN CORPUSCULAR VOLUME 82 fL (79.0-98.0); MONOCYTES # (AUTO) 0.6 K/uL (0.0-1.0); MONOCYTES % (AUTO) 5.8 % (1.7-9.3); NEUTROPHILS # (AUTO) 6.4 K/uL (1.8-7.7); NEUTROPHILS % (AUTO) 63.8 % (40.0-70.0); PLATELET COUNT (AUTO) 293 K/uL (130-430); RED BLOOD CELL COUNT(AUTO) 4.83 MIL/uL (4.2-6.2); RED CELL DISTRIBUTION WIDTH 13.3 % (9.0-15.0); WHITE BLOOD COUNT (AUTO) 10.1 K/uL (4.8-10.8)
[2023-06-12] MEDS: LABETALOL HCL 20 MG/4 ML CARTRIDGE IVP ONE (00:15)
[2023-06-12] MEDS: INSULIN Lispro 100 UNITS/ML, 3 ML VIAL (humaLOG) SUBCUT ONE (00:22)
[2023-06-12 00:41] LABS: ALANINE AMINOTRANSFERASE 50 U/L (12-78); ALBUMIN 3.4 g/dL (3.4-4.8); ANION GAP 9 (5-15); ASPARTATE AMINOTRANSFERASE 33 U/L (10-37); BILIRUBIN,DIRECT 0.1 mg/dL (0.0-0.3); CALCIUM 8.7 mg/dL (8.4-11.0); CARBON DIOXIDE 28 mmol/L (23-29); CHLORIDE 100 mmol/L (98-107); CREATININE 0.67 mg/dL (0.55-1.30); GFR AFRICAN AMERICAN 118 mL/min (>90); POTASSIUM 3.6 mmol/L (3.5-5.1); SODIUM SERUM 137 mmol/L (136-145); TOTAL BILIRUBIN 0.3 mg/dL (0.0-1.0); UREA NITROGEN, BLOOD 15 mg/dL (8-21)
[2023-06-12 00:46] LABS: GFR NON AFRICAN-AMERICAN 98 mL/min (>90)
[2023-06-12 00:47] LABS: GLUCOSE 416 mg/dL (74-106)
[2023-06-12] MEDS: NACL 0.9% 1,000 ML IV ONE (01:49)
[2023-06-12 01:53] LABS: BILIRUBIN,URINE NEGATIVE (NEGATIVE); BLOOD, URINE NEGATIVE (NEGATIVE); CLARITY/URINE CLEAR (CLEAR); COLOR,URINE YELLOW (YELLOW); GLUCOSE,URINE 3+ (NEGATIVE); KETONES,URINE NEGATIVE (NEGATIVE); LEUKOCYTE ESTERASE ,URINE NEGATIVE (NEGATIVE); NITRITE, URINE NEGATIVE (NEGATIVE); PH,URINE 6.5 (5.0-8.0); PROTEIN URINE NEGATIVE (NEGATIVE); UROBILINOGEN,URINE 0.2 (0.2-1.0)
[2023-06-12] MEDS: INSULIN Lispro 100 UNITS/ML, 3 ML VIAL (humaLOG) IV ONE (02:11)
[2023-06-12] MEDS ORDERED: INSU200I SQ (03:35)
[2023-06-12] MEDS ORDERED: INSU100I26 SQ (03:35)
[2023-06-12] MEDS: KETOROLAC TROMETHAMINE 30 MG VIAL IVP ONE (03:39)
[2023-06-12 03:58] VITALS: BP_SYST 136; PULSE 76; RESP 18; TEMP 97.4; O2SAT 97
== END 2023-06-12 03:58 | disposition home or self-care (01) ==
LOC: SED 22:36
DX: E11.9 Type 2 diabetes mellitus without complications (principal); I10 Essential (primary) hypertension; R53.1 Weakness; R07.9 Chest pain, unspecified; R42 Dizziness and giddiness; Z79.4 Long term (current) use of insulin; Z79.899 Other long term (current) drug therapy
CPT/HCPCS: 99285; 80076; 80048; 81001; 83880; 85025; 84484; 36415; 82948; 81003; 96374; 96361; 96375; 96372; J1885; J7030

== ENCOUNTER 2023-06-16 13:24 | Emergency (ER) | payer SELFPAY ==
[~2023-06-16 13:24] MED LIST changes: +INSU100I26 SQ; +INSU200I SQ
== END 2023-06-16 14:00 | disposition left against medical advice (07) ==
LOC: SED 13:24
DX: R73.9 Hyperglycemia, unspecified (principal); Z53.21 Procedure and treatment not carried out due to patient leaving prior to being seen by health care provider
CPT/HCPCS: 99281

== ENCOUNTER 2023-06-18 13:19 | Emergency (ER) | payer SELFPAY ==
[~2023-06-18] VITALS: Ht 157.5 cm; Wt 79.4 kg
[2023-06-18 13:38] VITALS: BP_SYST 145; PULSE 83; RESP 18; TEMP 98; O2SAT 96
[2023-06-18 15:56] LABS: BASOPHILS # (AUTO) 0.1 K/uL (0.0-0.2); BASOPHILS % (AUTO) 0.5 % (0.0-2.0); EOSINOPHILS # (AUTO) 0.2 K/uL (0.0-0.4); EOSINOPHILS % (AUTO) 2.2 % (0.0-4.0); HEMATOCRIT 41.1 % (36-48); HEMOGLOBIN 14.6 g/dL (12.0-16.0); LYMPHOCYTES # (AUTO) 2.6 K/uL (1.0-5.5); LYMPHOCYTES % (AUTO) 25.8 % (20.5-51.5); MEAN CORPUSCULAR HEMOGLOBIN 29 pg (27-31); MEAN CORPUSCULAR HGB CONC 36 % (32-36); MEAN CORPUSCULAR VOLUME 81 fL (79.0-98.0); MONOCYTES # (AUTO) 0.6 K/uL (0.0-1.0); MONOCYTES % (AUTO) 6.4 % (1.7-9.3); NEUTROPHILS # (AUTO) 6.6 K/uL (1.8-7.7); NEUTROPHILS % (AUTO) 65.1 % (40.0-70.0); PLATELET COUNT (AUTO) 290 K/uL (130-430); RED BLOOD CELL COUNT(AUTO) 5.05 MIL/uL (4.2-6.2); RED CELL DISTRIBUTION WIDTH 13.1 % (9.0-15.0); WHITE BLOOD COUNT (AUTO) 10.1 K/uL (4.8-10.8)
[2023-06-18 16:04] LABS: ANION GAP 9 (5-15); CALCIUM 8.8 mg/dL (8.4-11.0); CARBON DIOXIDE 28 mmol/L (23-29); CHLORIDE 102 mmol/L (98-107); CREATININE 0.58 mg/dL (0.55-1.30); GFR AFRICAN AMERICAN 140 mL/min (>90); GLUCOSE 212 mg/dL (74-106); POTASSIUM 3.6 mmol/L (3.5-5.1); SODIUM SERUM 139 mmol/L (136-145); UREA NITROGEN, BLOOD 20 mg/dL (8-21)
[2023-06-18 16:05] LABS: AMYLASE 26 U/L (0-100); GFR NON AFRICAN-AMERICAN 116 mL/min (>90); LIPASE 49 U/L (16-77)
[2023-06-18 17:08] LABS: ACETONE, SERUM NEGATIVE (NEGATIVE)
== END 2023-06-18 17:36 | disposition home or self-care (01) ==
LOC: SED 13:19
DX: E11.65 Type 2 diabetes mellitus with hyperglycemia (principal); I10 Essential (primary) hypertension; Z79.4 Long term (current) use of insulin; Z79.899 Other long term (current) drug therapy
CPT/HCPCS: 36415; 80048; 82009; 82150; 82948; 83605; 83690; 85025; 93005; 99284